=== PATIENT | male | born 2000 | race Caucasian/White ===

== ENCOUNTER 2020-12-14 13:09 | Emergency (ER) | payer OTHER, SELFPAY ==
[2020-12-14 13:23] VITALS: BP 145/93; PULSE 90; RESP 16; TEMP 36.6; O2SAT 96; BMI 25.7
[2020-12-14 13:44] LABS: Strep A Nucleic Acid Negative (Negative)
[2020-12-14 13:53] LABS: COVID-19 Test Negative (Negative); IDNOW Serial# 55D5AD1C
--- NOTE | 2020-12-14 13:54 | ED_ITS ---
HPI - URI/Sore Throat General Chief Complaint: Upper Respiratory Symptoms Stated Complaint: SORE THROAT Time Seen by Provider: 12/14/20 13:40 Source: patient Mode of arrival: ambulatory Limitations: no limitations History of Present Illness HPI Narrative: 20 y/o male with no significant medical history, presents with 4 days of worsening sore throat. He lost his voice 2 days ago, but now his voice is back, although hoarse. It hurts to swallow, but he can swallow. He can eat and drink, and can open his mouth all the way. No cough, no fever. No body aches, nasal congestion. No Covid exposure that he knows of, although he has heard that strep troat is going around campus. No abdominal pain, no N/V. MD elicited complaint: sore throat Onset (ago): day(s) (4) Consistency: progressively worsening Severity: moderate Pain scale (0-10): 6 Able to tolerate fluids by mouth: Yes Exacerbating factors: swallowing and speaking Relieving factors: NSAID Context: sick contacts Associated symptoms: voice changes and sore throat Related Data Previous Rx's Medication Instructions Recorded penicillin V potassium 500 mg 500 mg PO TID 7 Days #21 tab 12/14/20 tablet Allergies Allergy/AdvReac Type Severity Reaction Status Date / Time No Known Allergies Allergy Verified 12/14/20 13:24 Review of Systems Constitutional: Constitutional: Denies body ache(s), Denies chills, Denies fa tigue and Denies fever(s) Eyes: Eyes: Denies change in vision ENT: Reports change in voice, Denies dizziness, Denies dry mouth, Denies ear discharge, Denies otalgia, Denies mouth lesions, Denies mouth pain, Denies neck pain, Denies post nasal drip, Denies sinus pain, Denies sinus pressure, Reports sore throat, Denies throat swelling and Denies tongue swelling Cardiovascular: Cardiovascular: Denies chest pain and Denies dyspnea Respiratory: Respiratory: Denies chest congestion, Denies cough and Denies dyspnea Gastrointestinal: Gastrointestinal: Denies abdominal pain, Denies nausea and Denies vomiting Musculoskeletal: Musculoskeletal: Denies myalgias and Denies neck pain Integumentary/Breasts: Skin/Breast: Denies erythema and Denies rash Neurologic: Denies dizziness Endocrine: Endocrine: Denies fatigue Allergic/Immunologic: Allergic/Immunologic: Denies throat swelling and Denies tongue swelling PMFSH Past Medical History Medical History No known health problems Social History Social History Advance Directives: No Advance Directives Information Provided: No Physical Exam Vital Signs: Vital Signs: Last Vital Signs Temp 98 F 12/14/20 13:23 Pulse 90 12/14/20 13:23 Resp 16 12/14/20 13:23 BP 145/93 H 12/14/20 13:23 Pulse Ox 96 12/14/20 13:23 Body Mass Index 25.7 Const: Other: sEVERELY ERYTHEMATOUS POSTERIOR OROPHARYNX POSTERIORLY, THERE ARE SMALL PATCHES OF EXUDATE ON UVULA AND POSTERIOR BILATERAL orophaynx General: cooperative, healthy appearing, comfortable, no acute distress, well developed, alert and awake Nutritional Appearance: average body habitus and well nourished Orientation/consciousness: patient oriented x3 Limitations: no limitations HENMT: Head: Yes normal to inspection, Yes normocephalic and Yes atraumatic Ears: hearing grossly normal bilaterally, TM's normal bilaterally and EAC's normal General nose exam: Normal external nose present, Normal nares present and Normal nasal mucous membranes and turbinates present Face and sinus: Yes normal facial exam and Yes sinuses nontender Mouth: Normal oral and palatal mucosa present, tongue normal, moist mucous membranes and no trismus Throat: Yes uvula midline and Yes posterior oropharynx abnormal Eyes: Conjunctivae: conjunctivae normal Pupils: Equal, round and reactive pupils present EOM: EOMs intact bilaterally Neck: Neck: Yes full ROM, Yes no meningeal signs, Yes trachea midline and Yes supple Lymphatic: lymphadenopathy (anterior cervical LAD) Resp: Effort & Inspection: normal respiratory effort and able to speak in complete sentences Auscultation: clear to auscultation bilaterally, no crackles, no rales, no rhonchi and no wheezes Cardio: Rate: regular rate Rhythm: regular rhythm Heart sounds: S1 normal heart sound present and S2 normal heart sound present Skin: General skin exam: no rashes or lesions noted Neuro: General: patient oriented x3, gait normal, tone normal, no meningeal signs and no focal motor deficits Cranial nerves: Yes Equal, round and reactive pupils present Course Course Course Narrative: 20 y/o male with 4 days of worsening sore throat. On exam, pt is afebrile, but has anterior cervical LAD, erythematous posterior oropharnx with dots of white exudate on uvula and posterior oropharynx. Rapid strep negative. However, patient's presentation correlates with strep. An anterior cervical lymphadenopathy, no cough, erythematous posterior oropharynx, white exudate. In addition, patient may have had strep exposure at school. Will culture her throat, treat with penicillin, tell patient to call in 3 days for results. Salt water gargles, Motrin. MDM - URI/Sore Throat Lab Data Labs: Lab Results 12/14/20 12/14/20 Range/Units 13:29 13:29 COVID-19 ([facility]) Negative (Negative) COVID-19 Clin Com See Note S. pyogenes GrpA DEX Negative (Negative) Discharge Plan Discharge Clinical Impression: Acute streptococcal pharyngitis Patient Disposition: Home, Self-Care Instructions: Pharyngitis (ED) Additional Instructions: Please call the hospital in 3 days to see what your strep culture showed. If it is negative you can stop the antibiotics. In the meantime, fill your prescription for penicillin and take it as prescribed. Take 600 of ibuprofen every 6-8 hours for the next 3 days. This will help with the swelling in her throat. Use salt water gargles and to have then, 1 tsp to perform water gargle and spit, do this 3 times a day. Please return to emergency room if you cannot open your mouth, he cannot swallow food, if you have any trouble breathing, or for any other new or concerning symptoms. Prescriptions: New penicillin V potassium 500 mg tablet 500 mg PO TID 7 Days Qty: 21 RF: 0
== END 2020-12-14 14:38 | disposition home or self-care (01) ==
PROVIDERS: Emergency Provider Emergency Medicine
DX: J02.0 Streptococcal pharyngitis (principal); Z20.822 Contact with and (suspected) exposure to COVID-19; Z79.899 Other long term (current) drug therapy
CPT/HCPCS: 36415; 87635; 87651; 99283